=== PATIENT | female | born 1965 | race Caucasian/White ===

== ENCOUNTER 2022-12-09 11:18 | Emergency (ER) | payer MEDICARE ==
[2022-12-09] MEDS ORDERED: Sodium Chloride 0.9% 10 ML Syringe FLUSH PRN (12:18)
[2022-12-09] MEDS ORDERED: Metoclopramide 10 MG/2 ML SDV IVPUSH ONE (12:18)
[2022-12-09] MEDS ORDERED: Ketorolac 30 MG/ML SDV IVPUSH ONE (12:19)
[2022-12-09] MEDS ORDERED: diphenhydrAMINE 50 MG/ML SDV IVPUSH ONE (12:20)
[2022-12-09] MEDS ORDERED: Sodium Chloride 0.9% 1,000 ML IV SCH (12:30)
[2022-12-09 12:38] LABS: BASOPHILS ABSOLUTE AUTO 0.1 K/mm3 (0.0-0.2); BASOPHILS PERCENT AUTO 0.7 % (0.0-1.0); EOSINOPHILS ABSOLUTE AUTO 0.8 K/mm3 (0.0-0.4); EOSINOPHILS PERCENT AUTO 6.7 % (0.0-6.0); HEMATOCRIT 41.1 % (37.0-47.0); HEMOGLOBIN 13.4 gm/dl (12.0-16.0); IMMATURE GRAN ABSOLUTE AUTO 0.05 K/mm3 (0.00-0.05); IMMATURE GRAN PERCENT AUTO 0.4 % (0.0-0.4); LYMPHOCYTES ABSOLUTE AUTO 4.3 K/mm3 (1.0-4.8); LYMPHOCYTES PERCENT AUTO 35.7 % (24.0-44.0); MEAN CORPUSCULAR HEMOGLOBIN 31.6 pg (28.0-32.0); MEAN CORPUSCULAR HGB CONC 32.6 g/dl (32.0-36.0); MEAN CORPUSCULAR VOLUME 96.9 fl (83.0-99.0); MEAN PLATELET VOLUME 8.2 fl (9.4-12.3); MONOCYTES ABSOLUTE AUTO 1.2 K/mm3 (0.0-0.8); MONOCYTES PERCENT AUTO 9.6 % (0.0-8.0); NEUTROPHILS ABSOLUTE AUTO 5.7 K/mm3 (1.8-7.7); NEUTROPHILS PERCENT AUTO 46.9 % (41.0-71.0); PLATELET COUNT,PLT 340 K/mm3 (150-400); RED BLOOD CELL COUNT 4.24 M/mm3 (4.10-5.30); WHITE BLOOD CELL COUNT,WBC 12.08 K/mm3 (3.9-11.3)
[2022-12-09 13:24] LABS: A/G RATIO 0.8 (1-2); ALBUMIN 3.4 g/dl (3.4-5.0); ANION GAP 14.6 (5-15); BILIRUBIN TOTAL 0.3 mg/dL (0.2-1.0); BUN/CREATININE RATIO 10.9 (14-18); CALCIUM 9.1 mg/dL (8.5-10.1); CREATININE 1.1 mg/dL (0.55-1.02); EST CRCL DRUG DOSING (CG) 50.16 mL/min; MAGNESIUM 1.7 mg/dL (1.8-2.4); POTASSIUM,K 3.6 mEq/L (3.5-5.1); PROTEIN TOTAL,TP 7.7 g/dl (6.4-8.2)
== END 2022-12-09 14:48 | disposition home or self-care (01) ==
LOC: JD.ED 11:18
DX: R07.89 Other chest pain (principal); E16.2 Hypoglycemia, unspecified; Z86.16 Personal history of COVID-19
CPT/HCPCS: 36415; 70450; 71045; 80053; 82947; 83735; 84484; 85025; 93005; 96361; 96374; 96375; 99285; J1200; J1885; J2765; J3490; J7030; 93010

== ENCOUNTER 2023-08-23 13:41 | Emergency (ER) | payer MEDICARE, MEDICAID ==
[2023-08-23 15:43] LABS: BASOPHILS ABSOLUTE AUTO 0.1 K/mm3 (0.0-0.2); BASOPHILS PERCENT AUTO 0.8 % (0.0-1.0); EOSINOPHILS ABSOLUTE AUTO 0.5 K/mm3 (0.0-0.4); HEMATOCRIT 38.9 % (37.0-47.0); HEMOGLOBIN 12.7 gm/dl (12.0-16.0); IMMATURE GRAN ABSOLUTE AUTO 0.01 K/mm3 (0.00-0.05); IMMATURE GRAN PERCENT AUTO 0.1 % (0.0-0.4); LYMPHOCYTES ABSOLUTE AUTO 2.2 K/mm3 (1.0-4.8); LYMPHOCYTES PERCENT AUTO 27.9 % (24.0-44.0); MEAN CORPUSCULAR HGB CONC 32.6 g/dl (32.0-36.0); MEAN CORPUSCULAR VOLUME 94.9 fl (83.0-99.0); MEAN PLATELET VOLUME 8.4 fl (9.4-12.3); MONOCYTES ABSOLUTE AUTO 0.6 K/mm3 (0.0-0.8); MONOCYTES PERCENT AUTO 7.5 % (0.0-8.0); NEUTROPHILS ABSOLUTE AUTO 4.6 K/mm3 (1.8-7.7); NEUTROPHILS PERCENT AUTO 57.7 % (41.0-71.0); PLATELET COUNT,PLT 309 K/mm3 (150-400); WHITE BLOOD CELL COUNT,WBC 7.96 K/mm3 (3.9-11.3)
[2023-08-23 16:07] LABS: INR 0.96; PROTHROMBIN TIME 10.3 SECONDS (9.7-12.0)
[2023-08-23 16:08] LABS: PTT,PARTIAL THROMBOPLSTIN TIME 26.6 SECONDS (21.7-31.4)
[2023-08-23] MEDS: Nitroglycerin/D5W 25 MG/250 ML BOTTLE IV SCH (16:12)
[2023-08-23 16:21] LABS: A/G RATIO 0.8 (1-2); ALBUMIN 3.2 g/dl (3.4-5.0); ANION GAP 8.8 (5-15); BILIRUBIN TOTAL 0.3 mg/dL (0.2-1.0); BUN/CREATININE RATIO 13.8 (14-18); C-REACTIVE PROTEIN 0.91 mg/dL (<0.30); CALCIUM 9.5 mg/dL (8.5-10.1); CREATININE 0.8 mg/dL (0.55-1.02); EST CRCL DRUG DOSING (CG) 68.13 mL/min; MAGNESIUM 1.6 mg/dL (1.8-2.4); POTASSIUM,K 4.8 mEq/L (3.5-5.1); PROTEIN TOTAL,TP 7.3 g/dl (6.4-8.2)
[2023-08-23] MEDS: Sodium Chloride 0.9% 1,000 ML IV SCH (16:22)
== END 2023-08-23 17:49 | disposition home or self-care (01) ==
LOC: JD.ED 13:41
DX: R07.89 Other chest pain (principal); I25.2 Old myocardial infarction; Z86.16 Personal history of COVID-19; Z90.710 Acquired absence of both cervix and uterus; Z79.899 Other long term (current) drug therapy; Z88.8 Allergy status to other drugs, medicaments and biological substances
CPT/HCPCS: 36415; 71045; 80053; 83735; 83880; 84484; 85025; 85379; 85610; 85730; 86140; 93005; 96365; 96366; 99285; J2305; J7030; 93010; 99282

== ENCOUNTER 2023-10-30 08:01 | Day surgery (SDC) | payer MEDICARE, MEDICAID ==
[~2023-10-30 08:01] MED LIST: Sodium Chloride 0.9% 10 ML Syringe FLUSH PRN; Sodium Chloride 0.9% 10 ML Syringe FLUSH SCH
[2023-10-30] MEDS: Lactated Ringers 1,000 ML IV SCH (08:20)
[2023-10-30] MEDS: Acetaminophen 325 MG Tab PO ONE (08:35)
[2023-10-30] MEDS: Pregabalin 25 MG Cap PO ONE (08:35)
[2023-10-30] MEDS: oxyCODONE ER 10 MG TAB.ER PO ONE (08:36)
[2023-10-30] MEDS ORDERED: Sodium Chloride 0.9% 100 ML ONE (09:17)
[2023-10-30] MEDS ORDERED: fentaNYL 100 MCG/2 ML SDV ONE (09:22)
[2023-10-30] MEDS ORDERED: dexmedeTOMIDine HCl 200 MCG/2 ML SDV ONE (09:30)
[2023-10-30] MEDS ORDERED: Propofol 200 MG/20 ML SDV ONE (09:52)
[2023-10-30] MEDS ORDERED: Lidocaine 1% 5 ML VIAL ONE (09:56)
[2023-10-30] MEDS ORDERED: Dexamethasone 4 MG/ML 5 ML MDV ONE (10:00)
[2023-10-30] MEDS ORDERED: Ondansetron 4 MG/2 ML SDV ONE (10:00)
[2023-10-30] MEDS ORDERED: ceFAZolin 2 GM Vial ONE (10:15)
[2023-10-30] MEDS ORDERED: Ropivacaine 0.5% 5 MG/ML 30 ML SDV ONE (11:26)
[2023-10-30] MEDS: fentaNYL 100 MCG/2 ML SDV IVPUSH PRN (11:48)
[2023-10-30] MEDS: HYDROmorphone 0.5 MG/0.5 ML Syringe IVPUSH ONE (11:59)
[2023-10-30] MEDS: oxyCODONE 5 MG Tab PO PRN (13:08)
[2023-10-30] MEDS: Ondansetron 4 MG/2 ML SDV IVPUSH PRN (14:11)
[2023-10-30] MEDS: Tranexamic Acid 1,000 MG/10 ML Vial ONE (14:33)
[2023-10-30] MEDS: Morphine 8 MG, EPINEPHrine 0.3 MG, Cefuroxime 750 MG, Ketorolac 30 MG, Sodium Chloride ... PRN (14:33)
[2023-10-30] MEDS: Vancomycin 1 GM SDV ONE (14:35)
== END 2023-10-30 15:50 | disposition home or self-care (01) ==
LOC: JD.SDS 08:01
PROVIDERS: ATTEND Orthopaedic Surgery
DX: M17.11 Unilateral primary osteoarthritis, right knee (principal); I25.2 Old myocardial infarction; K21.9 Gastro-esophageal reflux disease without esophagitis; Z79.899 Other long term (current) drug therapy; Z88.8 Allergy status to other drugs, medicaments and biological substances
CPT/HCPCS: 01402; 64447; 73560-26-RT; 73560-RT; 97110-GP; 97161-GP; A9270-GY; C1713; C1776; J0171; J0690; J0697; J1100; J1170; J1885; J2270; J2405; J2704; J2795; J3010; J3370; J3490; J7120